=== PATIENT | male | born 1940 | race Caucasian/White ===

== ENCOUNTER 2016-12-26 02:53 | Observation (INO) | payer OTHER ==
[~2016-12-26] VITALS: Ht 165.1 cm; Wt 92.5 kg
[~2016-12-26 02:53] MED LIST: ALLEGRA ALLERG180 MG PO; AMITRIPTYLINE H50 MG PO; ANTIVERT25 MG PO; Antivert PO; COLACE100 MG PO; FLOXIN OTIC SOLN5 ML LEFT EAR; HYZAAR 50-121 TABLET PO; KEFLEX500 MG PO; LEXAPRO10 MG PO; LIPITOR40 MG PO; LISINOPRIL20 MG PO; METOPROLOL SUC100 MG PO; NEURONTIN100 MG PO; NEURONTIN300 MG PO; NORCO 5/3251 TABLET PO; NORVASC5 MG PO; PANTOPRAZOLE SO40 MG PO; SIMVASTATIN40 MG PO; TOPAMAX100 MG PO; TOPROL XL100 MG PO; TRIBENZOR 20-51 EAC1 PO; ULTRAM50 MG PO; Ultram PO; VALTREX1000 MG PO; VICODIN,LORT1 TABLET PO; ZANAFLEX4 M1 PO; ZESTRIL20 MG PO; ZOCOR40 MG PO
[2016-12-26 04:16] LABS: ADD MIUA? NO; BILIRUBIN NEGATIVE; BLOOD NEGATIVE; COLOR COLORLESS ((YELLOW)); GLUCOSE (STRIP) NEGATIVE; KETONES NEGATIVE; LEUKOCYTES NEGATIVE; NITRITE NEGATIVE; PROTEIN (STRIP) NEGATIVE; SPECIFIC GRAVITY 1.005 (1.000-1.030); UCUL ADDED? NO; UROBILINOGEN 0.2 MG/DL (0.2-1.0)
[2016-12-26 04:24] LABS: ADD MEDTOX COMMENT Y; AMPHETAMINE NEGATIVE (500 ng/mL); BARBITURATES NEGATIVE (200 ng/mL); BENZODIAZEPINES PRESUMPTIVE POSITIVE (150 ng/mL); COCAINE NEGATIVE (150 ng/mL); INTERNAL CONTROLS VALID? YES; METHADONE NEGATIVE (200 ng/mL); METHAMPHETAMINE NEGATIVE (500 ng/mL); OPIATES (MORPHINE) NEGATIVE (100 ng/mL); OXYCODONE NEGATIVE (100 ng/mL); PHENCYCLIDINE NEGATIVE (25 ng/mL); PROPOXYPHENE NEGATIVE (300 ng/mL); THC CANNABINOIDS NEGATIVE (50 ng/mL); TRICYCLIC ANTIDEPRESSANTS NEGATIVE (300 ng/mL)
[2016-12-26 04:25] LABS: BASOPHIL COUNT 0.1 K/uL (0-0.1); EOSINOPHIL (%) 3.5 % (0-5); EOSINOPHIL COUNT 0.3 K/uL (0-0.3); HEMATOCRIT 40.5 % (38.0-50.0); IMMATURE GRANULOCYTE (%) 0.4 % (0.0-0.7); INSTRUMENT ABS NEUTROPHIL CT 4.5 K/uL; MCH 29.2 PG (29.0-34.0); MCHC 32.8 G/DL (30.0-36.0); MCV 88.8 FL (86-99); MEAN PLAT.VOLUME 9.1 uM^3 (9.0-12.4); MONOCYTE (%) 7.4 % (3-12); MONOCYTE COUNT 0.6 K/uL (0-0.8); NEUTROPHIL (%) 52.6 % (45-76); NEUTROPHIL COUNT 4.5 K/uL (1.8-6.4); PLATELET COUNT 241 K/uL (156-360); RBC DIS.WIDTH-CV 11.8 % (11.8-14.6); RBC DIS.WIDTH-SD 37.7 % (39-53); RED BLOOD COUNT 4.56 M/uL (4.00-5.50); WHITE BLOOD COUNT 8.5 K/uL (4.1-10.2)
[2016-12-26 04:35] LABS: CHLORIDE 100 mEq/L (99-109); POTASSIUM 3.1 mEq/L (3.7-5.4); SODIUM 138 mEq/L (136-147)
[2016-12-26 04:36] LABS: PROTHROMBIN TIME 10.2 (9.2-11.2); PTT 30.1 (25-32)
[2016-12-26 04:37] LABS: GLUCOSE 100 mg/dL (70-99)
[2016-12-26 04:38] LABS: ANION GAP 11 MEQ/L (2-14)
[2016-12-26 04:39] LABS: TOTAL BILIRUBIN 0.4 mg/dL (0.0-1.0)
[2016-12-26 04:40] LABS: SERUM ETHYL ALCOHOL < 10 mg/dL
[2016-12-26 04:41] LABS: ALKALINE PHOSPHATASE 51 IU/L (3-129); GFR ESTIMATE (CALCULATED) 57 mL/min/
[2016-12-26 04:42] LABS: DIRECT BILIRUBIN 0.2 mg/dL (0.0-0.3)
[2016-12-26 04:43] LABS: UREA NITROGEN (BUN) 17 mg/dL (9-23)
[2016-12-26 04:44] LABS: SALICYLATE < 5.0 MG/DL (15-30)
[2016-12-26 04:45] LABS: LIPASE 51 U/L (1.0-51.0)
[2016-12-26 04:46] LABS: TROP-I INTERPRETATION NEGATIVE; TROPONIN-I 0.02 ng/mL (0.0-0.30)
[2016-12-26] MEDS ORDERED: LEXAPRO20 MG PO (08:17)
[2016-12-26] MEDS ORDERED: FENTANYL1 EAC5 TD (08:19)
[2016-12-26] MEDS ORDERED: METFORMIN HCL850 MG PO (08:19)
[2016-12-26] MEDS ORDERED: LORAZEPAM1 MG PO (08:19)
[2016-12-26] MEDS ORDERED: BENADRYL50 MG PO (08:20)
[2016-12-26] MEDS ORDERED: LO-DOSE ASPIRIN81 M2 PO (08:20)
[2016-12-26 10:07] VITALS: BP 155/68
[2016-12-26 11:50] LABS: TREPONEMA ANTIBODY NEGATIVE (NEGATIVE)
[2016-12-26 15:13] VITALS: BP 126/59
[2016-12-26 15:50] LABS: BENZODIAZEPINES QUANT VALUE ND NG/ML; BENZODIAZEPINES, URINE SCREEN ND (200 ng/mL)
[2016-12-26 19:51] VITALS: BP 135/63
[2016-12-27 00:01] VITALS: BP 117/55
[2016-12-27 03:44] VITALS: BP 120/53
[2016-12-27 07:07] LABS: ANION GAP 9 MEQ/L (2-14); CHLORIDE 105 MEQ/L (99-109); GFR ESTIMATE (CALCULATED) > 59 mL/min/; GLUCOSE 91 mg/dL (70-99); SAMPLE HEMOLYSIS CHECK 1; SAMPLE ICTERIC CHECK 0; SAMPLE LIPEMIA CHECK 0; SODIUM 140 MEQ/L (136-147); UREA NITROGEN (BUN) 17 mg/dL (9-23)
[2016-12-27 07:19] LABS: POTASSIUM 3.5 MEQ/L (3.7-5.4)
[2016-12-27 07:49] VITALS: BP 139/65
[2016-12-27 09:00] LABS: MAGNESIUM 1.8 mg/dl (1.3-2.7)
[2016-12-27 11:42] VITALS: BP 178/74
[2016-12-27] MEDS ORDERED: BENADRYL50 MG PO (12:12)
[2016-12-27] MEDS ORDERED: IBUPROFEN400 MG PO (12:13)
[2016-12-27 12:35] VITALS: BP 146/66
== END 2016-12-27 13:49 | disposition home or self-care (01) ==
LOC: EME 02:53 → 5SOUTH 07:40 → EDOF 07:40 → 5SOUTH 07:40
PROVIDERS: Emergency Medicine; Internal Medicine
DX: G92 Toxic encephalopathy (principal); T40.4X5A Adverse effect of other synthetic narcotics, initial encounter; E87.6 Hypokalemia; F41.9 Anxiety disorder, unspecified; I25.10 Atherosclerotic heart disease of native coronary artery without angina pectoris; G89.29 Other chronic pain; M54.5 Low back pain; E11.9 Type 2 diabetes mellitus without complications; E78.5 Hyperlipidemia, unspecified; I10 Essential (primary) hypertension; K21.9 Gastro-esophageal reflux disease without esophagitis; I25.2 Old myocardial infarction; Z95.1 Presence of aortocoronary bypass graft; K44.9 Diaphragmatic hernia without obstruction or gangrene
CPT/HCPCS: 70450; 70551; 71020; 80048; 80076; 81003; 82140; 82607; 82746; 82948; 83690; 83735; 84100; 84443; 84484; 84999; 85025; 85610; 85730; 86780; 93005; 99281; 99285; G0378; G0480; J1630; J1650; J1815; J7030